=== PATIENT | male | born 1965 | race Caucasian/White ===

== ENCOUNTER 2023-02-14 02:52 | Inpatient (IN) | payer BC ==
[2023-02-14] MEDS ORDERED: Ondansetron PF 4 MG/2 ML Vial ONE (03:10)
[2023-02-14 03:41] LABS: Actual Bicarbonate (HCO3v) 23.4 mEq/L (22-28); Base Excess -0.8 mEq/L (-2 - +2); Calcium, Ionized (venous) 1.11 mmol/L (1.16-1.32); Chloride (VBG) 98 mmol/L (98-106); Hematocrit-VBG 49 % (42.0-52.0); Hemoglobin (Hb) 16.8 g/dL (13.1-17.2); Potassium (VBG) 3.58 mmol/L (3.70-5.30); Puncture Site Other Site; RapidComm Collect By CBL; Sodium 138.7 mmol/L (133-146)
[2023-02-14 04:00] LABS: Red Blood Cell (RBC) Count 5.12 10x6/uL (4.32-5.72)
[2023-02-14 04:01] LABS: Hematocrit 46.8 % (38.8-50.0); Hemoglobin 16.3 g/dL (13.5-17.5); Mean Corpuscular HGB CONC 34.8 g/dL (32.0-36.0); Mean Corpuscular Hemoglobin 31.8 pg (27.0-33.0); Mean Corpuscular Volume 91.4 fl (81.2-95.1); Mean Platelet Volume 10.1 fl (7.4-10.4); Platelet Count 288 10x3/uL (130-400); RBC Distribution Width 12.6 % (11.5-14.5)
[2023-02-14 04:02] LABS: %Eosinophils 1.4 % (0.0-6.0); %Lymphocytes 7.9 % (18.0-47.0); %Monocytes 3.8 % (0.0-10.0); %Neutrophils 86.4 % (40.0-75.0)
[2023-02-14 04:03] LABS: #Eosinphils 0.2 10x3/uL (0.0-0.5); #Monocytes 0.4 10x3/uL (0.0-1.1); #Neutrophils 9.6 10x3/uL (1.5-8.4); %Basophils 0.3 % (0.0-2.0)
[2023-02-14 04:17] LABS: Acetaminophen Less than 10 mcg/mL (10.0-30.0); Troponin I Less than 0.010 ng/mL (< 0.028)
[2023-02-14 04:18] LABS: Alcohol Less than 10.0 mg/dL (Less than 10); Salicylate Less than 8.0 mg/dL (15.0-30.0)
[2023-02-14] MEDS ORDERED: Metoclopramide HCl 10 MG/2 ML VIAL ONE (04:22)
[2023-02-14 04:23] LABS: Carbon Dioxide 24 mmol/L (22-29); Chloride 100 mmol/L (98-107); Potassium 3.6 mmol/L (3.5-5.1); Sodium 141 mmol/L (136-145)
[2023-02-14] MEDS ORDERED: diphenhydrAMINE 50 MG/ML VIAL ONE (04:23)
[2023-02-14 04:24] LABS: BUN (Urea Nitrogen) 30 mg/dL (8.4-25.7); Bilirubin, Total 1.6 mg/dL (0.2-1.2); Calc. Creatinine Clearance 0 mL/min (70-130); Estimated GFR 53; Glucose 142 mg/dL (70-105)
[2023-02-14 04:25] LABS: ALT (SGPT) 17 U/L (8-55); AST (SGOT) 19 U/L (5-34); Albumin 4.9 g/dL (3.5-5.0); Alkaline Phosphatase 69 U/L (40-110); Protein, Total 7.9 g/dL (6.0-8.3)
[2023-02-14] MEDS ORDERED: Aspirin Chewable 81 MG TAB ONE (04:55)
[2023-02-14 05:07] LABS: Amphetamine Not Detected (NotDetected); Barbiturates Screen Not Detected (NotDetected); Benzodiazepine Screen Not Detected (NotDetected); Cocaine Metabolite Screen Not Detected (NotDetected); Methadone Not Detected (NotDetected); Methamphetamine Not Detected (NotDetected); Opiate Screen Not Detected (NotDetected); Oxycodone Screen Not Detected (NotDetected); Phencyclidine (PCP) Not Detected (NotDetected); THC/Cannabinoid Screen Detected (NotDetected); Tricyclic Screen Not Detected (NotDetected)
[2023-02-14] MEDS ORDERED: hydrALAZINE 20 MG/ML VIAL ONE (05:32)
[2023-02-14] MEDS ORDERED: Ondansetron PF 4 MG/2 ML Vial IVP PRN (05:42)
[2023-02-14] MEDS ORDERED: Calcium Carbonate 500 MG ChewTAB PO PRN (05:42)
[2023-02-14] MEDS ORDERED: Senokot S 8.6-50 MG TAB PO PRN (05:42)
[2023-02-14] MEDS ORDERED: Acetaminophen 325 MG TAB PO PRN (05:42)
[2023-02-14] MEDS ORDERED: hydrALAZINE 20 MG/ML VIAL SLOW IVP PRN ×2 (05:48→06:13)
[2023-02-14] MEDS ORDERED: Lactated Ringer's 1,000 ML IV SCH (06:00)
[2023-02-14] MEDS ORDERED: Labetalol HCl 100 MG/20 ML VIAL SLOW IVP PRN (06:13)
[2023-02-14 06:46] LABS: CSF, Glucose 82 mg/dL (40-70); CSF, Protein 38 mg/dL (15-40); Color Of CSF Supernatant COLORLESS (Colorless); Tube # 2; Unspun CSF Color COLORLESS (Colorless)
[2023-02-14 07:18] LABS: Anion Gap 21 mmol/L (10-20)
[2023-02-14 08:04] LABS: Anion Gap 19 mmol/L (10-20); BUN (Urea Nitrogen) 24 mg/dL (8.4-25.7); CRP (Inflammatory) Less than 0.50 mg/dL (= or < 0.5); Calc. Creatinine Clearance 0 mL/min (70-130); Calcium 9.6 mg/dL (7.8-10.44); Carbon Dioxide 20 mmol/L (22-29); Cardiac Risk 3.9 (Less than 4.5); Chloride 103 mmol/L (98-107); Cholesterol 186 mg/dl (< 200 Desired); Estimated GFR 66; Glucose 125 mg/dL (70-105); HDL Cholesterol 48 mg/dL (>60 Neg Risk); LDL Cholesterol, Calculated 121 mg/dL; Potassium 3.3 mmol/L (3.5-5.1); Sodium 139 mmol/L (136-145); Triglycerides 87 mg/dL (Less than 150)
[2023-02-14 08:22] LABS: CSF Source CSF; Clarity Clear (Clear); Tube # 1
[2023-02-14 08:23] LABS: CSF RBC Count - Manual 2050 /cu.mm (None Seen); CSF WBC/NonHematics Count-Man 2 /cu.mm (0-5)
[2023-02-14 08:34] LABS: CSF Source CSF; Clarity Clear (Clear); Tube # 4
[2023-02-14 08:40] LABS: CSF RBC Count - Manual 44 /cu.mm (None Seen); CSF WBC/NonHematics Count-Man 1 /cu.mm (0-5)
[2023-02-14] MEDS ORDERED: Amlodipine 5 MG TAB PO SCH ×2 (09:00→10:15)
[2023-02-14] MEDS ORDERED: Amlodipine 5 MG TAB ONE (10:26)
[2023-02-14] MEDS ORDERED: niCARdipine 25 MG in Sodium Chloride 0.9% 250 ML 250 ML IVPB SCH (10:30)
[2023-02-14 10:46] VITALS: BMI 24.2
[2023-02-14] MEDS ORDERED: Lisinopril 10 MG TAB PO SCH (11:00)
[2023-02-14] MEDS ORDERED: Iopamidol 370 76% 100 ML VIAL ONE (12:36)
[2023-02-14] MEDS ORDERED: Magnevist 469MG/ML 20 ML VIAL ONE (12:40)
[2023-02-14 12:51] LABS: Hemoglobin A1c 5.4 % (4.0-6.0)
[2023-02-14] MEDS ORDERED: Lorazepam 2 MG/ML VIAL SLOW IVP SCH (13:00)
[2023-02-14] MEDS ORDERED: Atorvastatin Calcium 20 MG TAB PO SCH (21:00)
[2023-02-15 02:57] LABS: #Basophils 0.1 10x3/uL (0.0-0.2); #Monocytes 1.7 10x3/uL (0.0-1.1); #Neutrophils 12.8 10x3/uL (1.5-8.4); %Basophils 0.3 % (0.0-2.0); %Eosinophils 0.2 % (0.0-6.0); %Lymphocytes 12.5 % (18.0-47.0); %Monocytes 9.9 % (0.0-10.0); %Neutrophils 76.8 % (40.0-75.0); Hematocrit 47.4 % (38.8-50.0); Hemoglobin 16.3 g/dL (13.5-17.5); Mean Corpuscular HGB CONC 34.4 g/dL (32.0-36.0); Mean Corpuscular Hemoglobin 31.4 pg (27.0-33.0); Mean Corpuscular Volume 91.3 fl (81.2-95.1); Platelet Count 264 10x3/uL (150-450); RBC Distribution Width 13.1 % (11.5-14.5); Red Blood Cell (RBC) Count 5.19 10x6/uL (4.32-5.72); White Blood Cell (WBC) Count 16.7 10x3/uL (3.5-10.5)
[2023-02-15 03:19] LABS: Anion Gap 15 mmol/L (10-20); BUN (Urea Nitrogen) 16 mg/dL (8.4-25.7); Calc. Creatinine Clearance 77 mL/min (70-130); Calcium 9.3 mg/dL (7.8-10.44); Carbon Dioxide 22 mmol/L (22-29); Chloride 102 mmol/L (98-107); Estimated GFR 78; Glucose 115 mg/dL (70-105); Potassium 3.6 mmol/L (3.5-5.1); Sodium 135 mmol/L (136-145)
[2023-02-15] MEDS ORDERED: Melatonin 3 MG TAB PO SCH (03:30)
[2023-02-15 07:53] VITALS: TEMP 98.1
[2023-02-15 08:25] VITALS: BP 175/94
[2023-02-15] MEDS ORDERED: Aspirin 81 mg Enteric Coated Tablet PO SCH (09:00)
[2023-02-15] MEDS ORDERED: Lisinopril 10 MG TAB PO SCH (09:00)
[2023-02-15] MEDS ORDERED: Amlodipine 10 MG TAB PO SCH (09:00)
== END 2023-02-15 10:03 | disposition home or self-care (01) | DRG 71 ==
LOC: SUATTDRO 02:52 → CSHERS 02:52 → CSHICU 10:37 → OBSVTOIN 10:44
PROVIDERS: ADMIT Hospitalist; ATTEND Hospitalist
PROC: 009U3ZX Drainage of Spinal Canal, Percutaneous Approach, Diagnostic (ICD-10-PCS; principal; 2023-02-14)
DX: I67.83 Posterior reversible encephalopathy syndrome (principal); I16.1 Hypertensive emergency; N17.9 Acute kidney failure, unspecified; I10 Essential (primary) hypertension; E78.5 Hyperlipidemia, unspecified; F17.210 Nicotine dependence, cigarettes, uncomplicated; F12.10 Cannabis abuse, uncomplicated; R73.9 Hyperglycemia, unspecified; Z90.49 Acquired absence of other specified parts of digestive tract; Z98.890 Other specified postprocedural states
CPT/HCPCS: 36415; 70450; 70496; 70498; 70553; 80048; 80053; 80061; 80306; 80307; 82805; 82945; 83036; 84157; 84443; 84484; 85025; 85652; 86140; 87070; 87205; 87252; 89051; 93005; 93306; 93880; A9579; J0360; J1200; J2060; J2405; J2765; J7050; Q9967